=== PATIENT | male | born 1995 | race Hispanic/Latino ===

== ENCOUNTER 2024-04-13 15:50 | Observation (INO) | payer SELFPAY ==
[~2024-04-13] VITALS: Ht 182.9 cm; Wt 110.3 kg
[2024-04-13] MEDS ORDERED: SODIUM CHLORIDE 0.9% 1000ML 1,000 ML ONE (16:36)
[2024-04-13] MEDS: SODIUM CHLORIDE 0.9% 1000ML 1,000 ML IV SCH ×2 (16:42→22:13)
[2024-04-13 18:58] VITALS: TEMP 99.8
[2024-04-13 19:01] VITALS: PULSE 88; RESP 15
[2024-04-13] MEDS: LORAZEPAM INJ 2 MG/ML VIAL IV ONE (19:19)
[2024-04-13 21:00] VITALS: BP 148/73; PULSE 97; RESP 18; TEMP 98.8; O2SAT 98
[2024-04-13 21:41] VITALS: BP 148/73; PULSE 97; RESP 18; TEMP 98.8; O2SAT 98
[2024-04-13] MEDS: ONDANSETRON HCL INJ 2MG/ML 2ML 2 MG/ML VIAL IV PRN (22:25)
[2024-04-13] MEDS ORDERED: Morphine 2mg Syringe 2 MG/ML SYR IV PRN (22:45)
[2024-04-14] VITALS (7 sets, daily range): BP systolic 117–143; BP diastolic 77–95; PULSE 67–82; RESP 17–20; TEMP 98.2–99.1; O2SAT 98–100
[2024-04-14 00:09] LABS: CREATINE KINASE 249 IU/L (30-200)
[2024-04-14 00:17] LABS: TROPONIN I < 0.001 ng/mL (0-0.300)
[2024-04-14] MEDS: ASPIRIN 81 MG CHEW TAB PO ONE (02:20)
[2024-04-14] MEDS: ASPIRIN 325 MG TAB PO ONE (02:21)
[2024-04-14 07:35] LABS: BASOPHILS % 0.2 % (0.0-1.0); EOSINOPHILS # (AUTO) 0.1 (0.0-0.4); EOSINOPHILS % 1.2 % (0.0-6.0); HEMATOCRIT 49.6 % (38.2-49.6); HEMOGLOBIN 15.7 g/dL (14.0-18.0); LYMPHOCYTES # (AUTO) 1.7 (1.0-3.2); LYMPHOCYTES % 27.8 % (18.0-39.1); MEAN CORPUSCULAR HEMOGLOBIN 32.2 pg (28-32); MEAN CORPUSCULAR HGB CONC 31.7 g/dL (31-35); MEAN CORPUSCULAR VOLUME 101.6 fL (81-99); MONOCYTES # (AUTO) 0.8 (0.2-0.8); MONOCYTES % 12.7 % (4.4-11.3); NEUTROPHILS # (AUTO) 3.5 (2.1-6.9); NEUTROPHILS % 57.9 % (38.7-80.0); PLATELET COUNT 201 x10e3/uL (140-360); RED BLOOD COUNT 4.88 x10e6/uL (4.3-5.7); RED CELL DISTRIBUTION WIDTH 13.2 % (11.7-14.4); WHITE BLOOD COUNT 6.07 x10e3/uL (4.8-10.8)
[2024-04-14] MEDS: LORAZEPAM INJ 2 MG/ML VIAL IV PRN (07:58)
[2024-04-14 08:13] LABS: ALBUMIN 3.6 g/dL (3.5-5.0); ALBUMIN/GLOBULIN RATIO 1.4 (0.8-2.0); ANION GAP 13.4 mmol/L (8-16); BILIRUBIN,TOTAL 1.4 mg/dL (0.2-1.2); CALCIUM 8.7 mg/dL (8.4-10.2); CREATININE, SERUM 0.79 mg/dL (0.72-1.25); POTASSIUM 3.4 mmol/L (3.5-5.1); TOTAL PROTEIN 6.1 g/dL (6.5-8.1)
[2024-04-14] MEDS: POTASSIUM CHLORIDE 20 MEQ TAB CR PO ONE ×2 (20:07→20:37)
[2024-04-15] VITALS: BP 120/90; PULSE 79; RESP 20; TEMP 98.6; O2SAT 100
[2024-04-15 06:12] VITALS: BP 118/88; PULSE 84; RESP 20; TEMP 98.2; O2SAT 100
[2024-04-15 06:41] LABS: ANION GAP 12.5 mmol/L (8-16); CALCIUM 8.8 mg/dL (8.4-10.2); CREATININE, SERUM 0.75 mg/dL (0.72-1.25); POTASSIUM 3.5 mmol/L (3.5-5.1)
[2024-04-15 08:11] VITALS: BP 139/82; PULSE 61; RESP 18; TEMP 98.2; O2SAT 100
[2024-04-15 09:43] VITALS: BP 139/82; PULSE 61; RESP 18; TEMP 98.2; O2SAT 100
[2024-04-15 11:56] VITALS: BP 135/74; PULSE 72; RESP 17; TEMP 97.5; O2SAT 100
[2024-04-15] MEDS ORDERED: BUSPIRONE HCL5 MG PO (12:37)
[2024-04-15] MEDS: POTASSIUM CHLORIDE 10MEQ EA PO ONE (13:04)
== END 2024-04-15 13:10 | disposition home or self-care (01) ==
LOC: FSED 15:54 → ERHOLD 19:47 → MED/SURG 20:58
PROVIDERS: ADMIT Internal Medicine; ATTEND Internal Medicine
DX: F10.120 Alcohol abuse with intoxication, uncomplicated (principal); E87.6 Hypokalemia; R00.2 Palpitations; E80.7 Disorder of bilirubin metabolism, unspecified; R55 Syncope and collapse; R42 Dizziness and giddiness; F12.90 Cannabis use, unspecified, uncomplicated; F41.9 Anxiety disorder, unspecified; R94.31 Abnormal electrocardiogram [ECG] [EKG]; Z11.52 Encounter for screening for COVID-19
CPT/HCPCS: 0223U; 36415 ×3; 70450; 71046; 80048; 80053 ×2; 80307; 81003; 82550; 82553; 82948; 84443; 84484; 85025 ×2; 85379; 87400; 93005; 93306; 99252; 99284; G0378 ×3; J2060 ×3; J2405 ×2; J7030 ×3; J2270